=== PATIENT | male | born 1995 | race Caucasian/White ===

== ENCOUNTER → 2017-06-29 | Outpatient (REF) | payer OTHER ==
[2017-06-29 20:58] LABS: INFLUENZA A AMPLIFICATION POSITIVE (NEGATIVE); INFLUENZA B AMPLIFICATION NEGATIVE (NEGATIVE); RSV AMPLIFICATION NEGATIVE (NEGATIVE)
== END ==
LOC: M LAB REF 14:21
DX: J11.1 Influenza due to unidentified influenza virus with other respiratory manifestations (principal)